=== PATIENT | male | born 1980 | race Caucasian/White ===

== ENCOUNTER 2017-03-16 16:02 | Emergency (ER) | payer OTHER ==
[~2017-03-16] VITALS: Ht 170.2 cm; Wt 81.4 kg
[2017-03-16] MEDS ORDERED: XANAX1 MG PO (18:32)
[2017-03-16 18:54] VITALS: BP 159/106
== END 2017-03-16 18:54 | disposition home or self-care (01) ==
LOC: EME 16:02
DX: F41.9 Anxiety disorder, unspecified (principal); F43.10 Post-traumatic stress disorder, unspecified; F17.200 Nicotine dependence, unspecified, uncomplicated; Z76.0 Encounter for issue of repeat prescription